=== PATIENT | male | born 1985 | race Caucasian/White ===

== ENCOUNTER 2020-02-18 01:44 | Emergency (ER) | payer OTHER, SELFPAY ==
--- NOTE | ~2020-02-18 | XR_ITS ---
EXAMINATION: XR chest 2V DATE: 02/18/2020 03:17 INDICATION: 1-2 months of shortness of breath TECHNIQUE: PA and lateral views of the chest were obtained. COMPARISON: None FINDINGS: The lungs are clear with no focal airspace opacities, pulmonary edema, pleural effusion or pneumothor ax. The cardiomediastinal silhouette is normal. Visualized bones and soft tissues are unremarkable. IMPRESSION: 1. Normal chest radiograph. Reviewed, dictated and finalized at location A. IMPRESSION: 1. Normal chest radiograph.
[2020-02-18 01:52] VITALS: BP 149/92; PULSE 81; RESP 18; TEMP 36.3; O2SAT 100
--- NOTE | 2020-02-18 02:01 | ED.CHESTPAIN ---
HPI - Chest Pain General Chief Complaint: Chest Pain Stated Complaint: fullness in chest and throat/increased blood flow Time Seen by Provider: 02/18/20 01:55 Source: patient and RN notes reviewed Mode of arrival: other Limitations: no limitations History of Present Illness HPI narrative: Pt is a 34 y/o male who presents to the ED with c/o chest fullness and throat fullness that began a few months ago, but has progressively worsened the past couple of days. Pt states that he has had a lot of anxiety built up from dysphagia for the past 2 years. Pt describes his dyphagia as if someone is sticking two fingers into his neck. Pt notes that yesterday he did a workout and he notes that the blood flow in his neck worsens the way he swallows. Pt has had acid reflux after eating. Pt denies talking to his PCP about his sx. He notes that he has only talked to his PCP about the pain in his elbow. Pt also reports palpitations, but denies vomiting. MD complaint: other (chest and throat fullness) Onset (ago): month(s) (2) Timing of current episode: still present Quality: fullness Associated symptoms: palpitations Treatment prior to arrival: none Review of Systems Review of Systems: All systems reviewed & are unremarkable except as noted in HPI and below ENT: Reports dysphagia Cardiovascular: Cardiovascular: Reports palpitations and Reports other (chest and throat fullness) Gastrointestinal: Gastrointestinal: Denies vomiting PMFSH Past Medical History Medical History (Updated 02/18/20 @ 04:22 by Jeane Perry MD) Hernia Surgical History Surgical History (Updated 02/18/20 @ 02:37 by Susan Jansen) H/O hernia repair Social History Social History (Updated 02/18/20 @ 02:36 by Susan Jansen) Smoking status: Never smoker Alcohol intake: current Substance use: current Substance use type: marijuana Exam Narrative: Exam Narrative: GENERAL: Well-appearing, well-nourished, and in no acute distress. HEAD: Normocephalic, atraumatic EYES: PERRLA and EOMI, conjunctiva clear without discharge EARS: TM's clear bilaterally without erythema or dullness NOSE: Nares clear, no rhinorrhea or epistaxis THROAT:Mucous membranes moist, Oropharynx normal without erythema, exudate, peritonsillar swelling or fluctuance NECK: Supple, without lymphadenopathy or mass RESPIRATORY: No respiratory distress, Airway patent, Respirations non-labored, Clear to auscultation without rales, rhonchi or wheeze HEART: Regular rate and rhythm. No murmur heard. Normal peripheral pulses. ABDOMEN: Soft, nontender, nondistended, normal active bowel sounds. No masses. No rebound or guarding, No organomegaly. EXTREMITIES: No edema, normal strength with full range of motion. SKIN: Warm, dry, normal color without rash NEURO: Alert and oriented x3. CN 2-12 grossly intact. No focal deficits. PSYCH: Normal mood and affect. Neck: Neck: full ROM, no lymphadenopathy, no meningeal signs and trachea midline Thyroid: thyroid normal Lymphatic: no lymphadenopathy noted Chest: Chest palpation & inspection: normal inspection of the chest Course Reevaluation(s) Reevaluation #1: I have discussed with patient that symptoms may be related to anxiety but he will need to follow up with primary care physician to rule out arrhythmia or GI cause. I discussed he should hold off on exercise until he is seen by his primary care physician. Date: 02/18/20 Time: 04:17 Vital Signs Vital signs: Vital Signs Temperature 97.4 F L 02/18/20 01:52 Pulse Rate 81 02/18/20 01:52 Respiratory Rate 18 02/18/20 01:52 Blood Pressure 149/92 H 02/18/20 01:52 Pulse Oximetry 100 02/18/20 01:52 Temperature 97.4 F L 02/18/20 01:52 Pulse Rate 72 02/18/20 03:27 Respiratory Rate 18 02/18/20 03:27 Blood Pressure 137/87 02/18/20 03:27 Pulse Oximetry 100 02/18/20 03:27 MDM - Chest Pain Lab Data Attestation: I reviewed the patient's lab results. Resu
[2020-02-18 02:13] VITALS: PULSE 74
[2020-02-18 02:27] LABS: Basophils Percent Auto 0.3 % (0.2-1.2); Eosinophils Absolute Auto 0.1 K/mm3 (0-0.3); Eosinophils Percent Auto 1.3 % (0-4.4); Hematocrit 43.5 % (42.0-52.0); Immature Granulocyte Absolute 0.04 K/mm3 (0.00-0.031); Immature Granulocyte Percent A 0.4 % (0-0.5); Lymphocytes Absolute Auto 4.61 K/mm3 (0.9-3.2); Lymphocytes Percent Auto 47.5 % (18.3-44.2); Mean Corpuscular HGB Conc 34.5 g/dl (32-36); Mean Corpuscular Hemoglobin 31.9 pg (26-34); Mean Corpuscular Volume 92.6 fl (80-100); Mean Platelet Volume 9.5 fl (7.4-10.4); Monocytes Absolute Auto 0.6 K/mm3 (0.1-0.6); Monocytes Percent Auto 6.3 % (2.6-8.5); Neutrophils Absolute Auto 4.3 K/mm3 (1.3-6.7); Neutrophils Percent Auto 44.2 % (45.5-73.1); Platelet Count Result 237 k/mm3 (150-375); Red Cell Distribution Width 11.9 % (11.5-14.5); White Blood Count 9.7 K/mm3 (4.5-10.0)
[2020-02-18 02:31] LABS: INR 0.9; Prothrombin Time 12.2 Seconds (11.1-14.7)
[2020-02-18 02:57] LABS: D Dimer < 0.22 ug/mL (<0.48)
[2020-02-18 03:21] LABS: Alanine Aminotransferase 27 U/L (4-50); Albumin Level 4.4 g/dL (3.5-5.1); Alkaline Phosphatase 52 U/L (38-126); Aspartate Amino Transferase 32 U/L (17-59); Bilirubin,Total 0.7 mg/dL (0.2-1.3); Blood Urea Nitrogen 21 mg/dL (9-20); Calcium 9.4 mg/dL (8.4-10.2); Carbon Dioxide 29 mmol/L (22-30); Chloride 104 mmol/L (98-107); Estimated CRCL calculation 88 ml/min; Estimated Glomerular Filt Rate > 60; Glucose 117 mg/dL (75-110); Potassium 3.6 mmol/L (3.4-5.0); Sodium 137 mmol/L (137-145)
[2020-02-18 03:27] VITALS: BP 137/87; PULSE 72; RESP 18; O2SAT 100
[2020-02-18 04:30] LABS: Troponin I 0.012 ng/mL (0.000-0.034)
[2020-02-18 04:40] VITALS: BP 126/78; PULSE 78; RESP 18; O2SAT 99
--- NOTE | 2020-02-18 10:39 | ECG_ITS ---
Measurements Intervals [place] Rate: 74 P: 64 WI: 175 QRS: 55 QRSD: 112 T: 59 QT: 375 QTc: 418 Interpretive Statements SINUS RHYTHM WITH SINUS ARRHYTHMIA INCOMPLETE RIGHT BUNDLE BRANCH BLOCK BORDERLINE ECG Electronically Signed On 02-18-2020 10:50:00 CDT by Boris Clancy D.O.
== END 2020-02-18 04:55 | disposition home or self-care (01) ==
PROVIDERS: Emergency Provider General Practice
DX: F45.8 Other somatoform disorders (principal); R00.2 Palpitations; I45.10 Unspecified right bundle-branch block
CPT/HCPCS: 36415; 71046; 80053; 83735; 84484; 85025; 85380; 85610; 85730; 93005; 99284

== ENCOUNTER 2020-06-29 19:53 | Emergency (ER) | payer OTHER, SELFPAY ==
[2020-06-29] VITALS (8 sets, daily range): BP systolic 126–149; BP diastolic 25–112; PULSE 66–88; RESP 15–20; TEMP 36.8; O2SAT 97–100
--- NOTE | ~2020-06-29 | XR_ITS ---
EXAMINATION: XR chest 2V 06/29/2020 20:37 INDICATION: Chest pain PROCEDURE: PA and lateral chest COMPARISON: 02/18/2020 FINDINGS: The lungs are clear. The cardiomediastinal silhouette is within normal limits. There are no pleural effusions. There is no pneumothorax suspected. IMPRESSION: 1: NO ACUTE CARDIOPULMONARY DISEASE. Reviewed, dictated and finalized at location A.
--- NOTE | ~2020-06-29 | CT_ITS ---
EXAMINATION: CTA brain carotid DATE: 06/29/2020 22:01 INDICATION: Headache and neck pain with exertion TECHNIQUE: Computed tomographic angiography (CTA) of the head was performed without and with 100 mL O mnipaque-350 intravenous contrast. CTA of the neck was performed with intravenous contrast. The dose- length product was 1757.16 mGy-cm. Maximum intensity projection and volume rendered 3D-reconstruction s were created by the technologist on a separate workstation. Automated exposure control and iterativ e reconstruction technique were employed. COMPARISON: None. FINDINGS: HEAD CTA: There is no intracranial hemorrhage, acute infarction, or abnormal mass lesion. The ventric les are normal. There is no abnormal mass effect or midline shift. The watts-white matter differentiat ion is normal. The basal cisterns are patent. The orbits are normal. The paranasal sinuses, mastoids and calvarium are normal. There is no significant stenosis of the basilar artery or posterior cerebral arteries. There is no si gnificant stenosis of the intracranial internal carotid arteries or the anterior or middle cerebral a rteries. The anterior communicating artery and posterior communicating arteries are normal. There is no aneurysm. NECK CTA: The thyroid gland is unremarkable. The submandibular and parotid glands are symmetric. Ther e is no lymphadenopathy. There are no masses identified. The airway is unremarkable. There are no oss eous abnormalities. The superior mediastinum is unremarkable. There is 0% stenosis of the proximal right internal carotid artery relative to normal distal artery l umen diameter (NASCET criteria). There is 0% stenosis of the proximal left internal carotid artery re lative to normal distal artery lumen diameter. IMPRESSION: 1. No acute intracranial abnormality. Normal head CTA. 2. 0% stenosis of the proximal right internal carotid artery relative to normal distal artery lumen d iameter (NASCET criteria). 3. 0% stenosis of the proximal left internal carotid artery relative to normal distal artery lumen di ameter. Reviewed, dictated and finalized at location A. IMPRESSION: 1. No acute intracranial abnormality. Normal head CTA. 2. 0% stenosis of the proximal right internal carotid artery relative to normal distal artery lumen diameter (NASCET criteria). 3. 0% stenosis of the proximal left internal carotid artery relative to normal distal artery lumen diameter.
--- NOTE | 2020-06-29 20:09 | PC.NURSE ---
ERP Dr. Strickland at bedside for assessment.
--- NOTE | 2020-06-29 20:13 | ECG_ITS ---
Measurements Intervals [place] Rate: 71 P: 62 RI: 173 QRS: 43 QRSD: 117 T: 53 QT: 371 QTc: 405 Interpretive Statements SINUS RHYTHM INTRAVENTRICULAR CONDUCTION DELAY BORDERLINE ECG Electronically Signed On 06-29-2020 21:34:15 CDT by Boris Clancy D.O.
--- NOTE | 2020-06-29 20:14 | ED.GENADULT ---
HPI - General Adult General Chief complaint: Unspecified Stated complaint: orthostatic headache Time Seen by Provider: 06/29/20 20:06 Source: RN notes reviewed History of Present Illness HPI narrative: Patient presents emergency department from home for multiple complaints. Patient states that approximately a year and a half ago he was performing squats when he developed a severe headache. He states that headache continued for approximately 3 weeks and worsened with any activity of any kind. He states that with that headache he had pain that radiated into his upper back and chest. States that since that time for the past year and a half he has intermittent headaches as well as a heavy feeling in his chest when he stands up with difficulty breathing and difficulty swallowing with pain localized in the right upper back. Patient states that at times the pain will radiate into his jaw and into his arm and improves with sitting down. He states that he has no fevers or chills no vision changes no numbness or tingling in extremities no abdominal pain nausea vomiting or any other symptoms. Related Data Home Medications Medication Instructions Recorded Confirmed No Home Medications 06/29/20 Allergies Allergy/AdvReac Type Severity Reaction Status Date / Time prochlorperazine AdvReac Agitated Verified 06/29/20 20:05 [From Compazine] Review of Systems Review of Systems: Narrative: Gen.: Denies fevers or chills Eyes: Denies eye pain or visual change ENT: Denies congestion Respiratory: Reports shortness of breath, denies cough CV: See HPI GI: Denies abdominal pain nausea, emesis or diarrhea denies burning, urgency, frequency or hematuria Musculo she reports intermittent headache, denies numbness or tingling Skin: Denies rash Except as documented, all other systems reviewed and negative [facility] Past Medical History Medical History Hernia Surgical History Surgical History (Updated 02/18/20 @ 02:37 by Susan Jansen) H/O hernia repair Social History Social History Smoking status: Never smoker Alcohol intake: current Substance use: current Substance use type: marijuana Gender identity (if verbalized by the patient): Male Exam Narrative: Exam Narrative: APPEARANCE: No acute distress, nontoxic, resting in bed HEENT: Normocephalic, atraumatic, OMM, TMs clear bilaterally EYES: PERRL, EOMI NECK: Supple, nontender, full range of motion without pain, no meningismus RESPIRATORY: No respiratory distress, clear to auscultation bilaterally with no rhonchi wheezing or rales CARDIOVASCULAR: RRR s murmur bilateral radial pulse 2+ ABDOMINAL: Soft, nontender, nondistended MUSCULOSKELETAL: Moves all extremities. No clubbing, cyanosis or edema. Back: No midline thoracic lumbar tenderness palpation, tender palpation right paravertebral muscles T4-6 NEURO: A and O ?3, following commands, speech normal, no facial droop,muscle strength 5 out of 5 bilateral upper and lower extremities SKIN:: Warm, dry. Normal Color PSYCHIATRIC: Normal affect/mood Course Course Emergency Course: Patient meets PERC rule criteria and no further testing needs to be performed for pulmonary embolism. Patient been chest pain-free throughout stay in ED. Discussed with Dr. montes presentation work-up. Discussed EKGs and lab results. Please patient may be discharged with follow-up as an outpatient Discussed with patient results of workup and diagnosis. Discussed need for follow-up with primary care, proper use of medication, and reasons to return to the emergency department. Patient understands and agrees to current treatment plan. Discussed with patient plan for follow-up with cardiology as well as neurology as he has been having current issues with headaches for the past year and a half Vital Signs Vital signs: Vital Signs Temperatur
[2020-06-29] MEDS: SODIUM CHLORIDE 0.9% IV 1,000 ML 999 ML IV CONT (20:20)
[2020-06-29 20:32] LABS: Basophils Percent Auto 0.5 % (0.2-1.2); Eosinophils Absolute Auto 0.1 K/mm3 (0-0.3); Eosinophils Percent Auto 1.5 % (0-4.4); Hematocrit 48.1 % (42.0-52.0); Hemoglobin 16.7 g/dL (14.0-18.0); Immature Granulocyte Absolute 0.03 K/mm3 (0.00-0.031); Immature Granulocyte Percent A 0.4 % (0-0.5); Lymphocytes Absolute Auto 4.24 K/mm3 (0.9-3.2); Lymphocytes Percent Auto 49.9 % (18.3-44.2); Mean Corpuscular HGB Conc 34.7 g/dl (32-36); Mean Corpuscular Hemoglobin 32.4 pg (26-34); Mean Corpuscular Volume 93.2 fl (80-100); Mean Platelet Volume 9.3 fl (7.4-10.4); Monocytes Absolute Auto 0.7 K/mm3 (0.1-0.6); Monocytes Percent Auto 7.7 % (2.6-8.5); Neutrophils Absolute Auto 3.4 K/mm3 (1.3-6.7); Platelet Count Result 250 k/mm3 (150-375); Red Blood Count 5.16 M/mm3 (4.6-6.20); Red Cell Distribution Width 11.8 % (11.5-14.5); White Blood Count 8.5 K/mm3 (4.5-10.0)
[2020-06-29 20:42] LABS: INR 0.9; Prothrombin Time 11.6 Seconds (11.1-14.7)
[2020-06-29 20:43] LABS: Partial Thromboplastin Time 31.9 SECONDS (22.3-36.8)
[2020-06-29 20:44] LABS: Anion Gap 11.9 mmol/L (7-16); Blood Urea Nitrogen 21 mg/dL (9-20); Calcium 9.3 mg/dL (8.4-10.2); Carbon Dioxide 30 mmol/L (22-30); Chloride 101 mmol/L (98-107); Estimated Glomerular Filt Rate > 60; Glucose 100 mg/dL (75-110); Potassium 3.9 mmol/L (3.4-5.0); Sodium 139 mmol/L (137-145)
[2020-06-29 20:55] LABS: Troponin I 0.015 ng/mL (0.000-0.034)
--- NOTE | 2020-06-29 21:03 | PC.NURSE ---
ERP at bedside to update pt on status/results
--- NOTE | 2020-06-29 22:14 | PC.NURSE ---
RN report given to Alejandrina
[2020-06-30 00:06] VITALS: BP 124/76; PULSE 75; RESP 16; O2SAT 99
== END 2020-06-30 00:08 | disposition home or self-care (01) ==
PROVIDERS: Emergency Provider Emergency Medicine; PCP Physician Assistant
DX: R51 Headache (principal); R07.9 Chest pain, unspecified; I45.9 Conduction disorder, unspecified
CPT/HCPCS: 36415; 70496; 70498; 71046; 80048; 84484; 85025; 85610; 85730; 93005; 96360; 99284; J7030; Q9967

== ENCOUNTER 2020-12-31 13:34 | Emergency (ER) | payer OTHER, SELFPAY ==
--- NOTE | ~2020-12-31 | US_ITS ---
EXAMINATION: US scrotum doppler DATE: 12/31/2020 15:25 INDICATION: Testicular pain. TECHNIQUE: Grayscale and Doppler ultrasound images of the testes were obtained. COMPARISON: None. FINDINGS: The right testis measures 3.9 x 2.8 x 2.4 cm. The left testis measures 3.8 x 2.4 x 2.2 cm. There is normal vascular flow to both testes. The right epididymis is normal with normal vascular janice w. The left epididymis is normal with normal vascular flow. There is no varicocele or hydrocele. IMPRESSION: 1. Normal testes. Reviewed, dictated and finalized at location A. EWATER RAFTING GUIDE IMPRESSION: 1. Normal testes.
--- NOTE | ~2020-12-31 | CT_ITS ---
EXAMINATION: CT abdomen pelvis wo con DATE: 12/31/2020 16:25 INDICATION: Flank pain radiating to the groin. TECHNIQUE: Computed tomography (CT) of the abdomen and pelvis was performed without intravenous contr ast. Automated exposure control and iterative reconstruction technique were employed. The dose-length product was 290.74 mGy-cm. COMPARISON: None. FINDINGS: The visualized portions of the lung bases demonstrate minimal atelectasis. No pleural effus ion. The heart size is normal. No pericardial effusion. The liver, gallbladder, spleen, pancreas, adr enal glands, and kidneys are normal. There is no urolithiasis. There are no dilated loops of bowel. T he appendix is normal. There are no pathologically enlarged lymph nodes. There is no free intraperito varghese fluid. There is moderate degenerative disc disease at L5-S1. IMPRESSION: 1. No urolithiasis. Reviewed, dictated and finalized at location A. OLOGY INSTRUCTOR IMPRESSION: 1. No urolithiasis.
[2020-12-31 13:42] VITALS: BP 155/94; PULSE 85; RESP 14; TEMP 36.6; O2SAT 99
--- NOTE | 2020-12-31 15:00 | ED.MALEGU ---
HPI - Male Genitourinary General Chief complaint: Urogenital-Male Stated complaint: testicular pain Time Seen by Provider: 12/31/20 14:29 Source: patient Mode of arrival: ambulatory Limitations: no limitations History of Present Illness HPI Narrative: This is a 35 year old male that presents to the ER for testicular pain x 2 days. Reports he and his used a penis ring and since that time he has been having pain in his testicles. Especially in the right testicle. Reports the pain radiates into his abdomen and low back. The pain is a dull ache and intermittently more sharp. Reports no concern for STDs. Reports urinary frequency. Denies fever, vomiting, dysuria or hematuria. Related Data Home Medications Medication Instructions Recorded Confirmed No Home Medications 12/31/20 12/31/20 Allergies Allergy/AdvReac Type Severity Reaction Status Date / Time prochlorperazine AdvReac Agitated Verified 12/31/20 14:00 [From Compazine] Review of Systems Review of Systems: Narrative: CONSTITUTIONAL: Denies fever GASTROINTESTINAL: Reports abdominal pain, nausea. Denies vomiting GENITOURINARY: Denies dysuria or hematuria. MUSCULOSKELETAL: Reports back pain, joint pain, and myalgia. NEUROLOGIC: Denies numbness, or weakness. All systems reviewed & are unremarkable except as noted in HPI and below PMFSH Past Medical History Medical History (Updated 12/31/20 @ 17:07 by Shanika Clemens PA-C) Hernia Surgical History Surgical History (Updated 02/18/20 @ 02:37 by Susan Jansen) H/O hernia repair Social History Social History Smoking status: Never smoker Alcohol intake: current Substance use: current Substance use type: marijuana Gender identity (if verbalized by the patient): Male Exam Narrative: Exam Narrative: GENERAL: Well-appearing, well-nourished, and in no acute distress. HEAD: Normocephalic, atraumatic. EYES: EOMI. CHEST: Clear to auscultation. No respiratory distress. No wheezes rales or rhonchi HEART: Regular rate and rhythm. No murmur heard. Normal peripheral pulses. ABDOMEN: Soft, nondistended, normal active bowel sounds. Tender to palpation lower abdomen, without guarding. No CVA tenderness EXTREMITIES: Normal range of motion. No edema. SKIN: Warm, dry, no rash. NEURO: No focal deficits. Alert and oriented x3. PSYCH: Normal mood and affect Course Vital Signs Vital signs: Vital Signs Temperature 97.9 F 12/31/20 13:42 Pulse Rate 85 12/31/20 13:42 Respiratory Rate 14 12/31/20 13:42 Blood Pressure 155/94 H 12/31/20 13:42 Pulse Oximetry 99 12/31/20 13:42 Temperature 97.9 F 12/31/20 13:42 Pulse Rate 85 12/31/20 13:42 Respiratory Rate 14 12/31/20 13:42 Blood Pressure 155/94 H 12/31/20 13:42 Pulse Oximetry 99 12/31/20 13:42 MDM - Male Genitourinary MDM Narrative Medical decision making narrative: Patient presents the emergency department for testicular pain over the last couple of days. Seem to be correlated with using a penis ring during intercourse. Reported the pain radiated to his groin and flank at times. Reported no concern for STDs, or abnormal lesions or rashes. He is afebrile and nontoxic-appearing. CBC and metabolic panel without concerning findings. UA without evidence of infection. Scrotum ultrasound is normal. CT abdomen pelvis is without evidence of ureterolithiasis. Patient was updated on case findings. Will be given urology for follow-up. He is stable and felt appropriate for further outpatient evaluation. He was given warnings to return to the ER Lab Data Attestation: I reviewed the patient's lab results. Result diagrams: 12/31/20 15:03 12/31/20 15:03 Labs: Lab Results 12/31/20 12/31/20 12/31/20 Range/Units 15:03 15:03 15:03 WBC 7.0 (4.5-10.0) K/mm3 RBC 4.68 (4.6-6.20) M/mm3 Hgb 15.0 (14.0-18.0) g/dL Hct 44.1 (42.0
[2020-12-31 15:19] LABS: Basophils Percent Auto 0.6 % (0.2-1.2); Eosinophils Absolute Auto 0.1 K/mm3 (0-0.3); Hematocrit 44.1 % (42.0-52.0); Immature Granulocyte Absolute 0.01 K/mm3 (0.00-0.031); Immature Granulocyte Percent A 0.1 % (0-0.5); Lymphocytes Absolute Auto 3.26 K/mm3 (0.9-3.2); Lymphocytes Percent Auto 46.4 % (18.3-44.2); Mean Corpuscular Hemoglobin 32.1 pg (26-34); Mean Corpuscular Volume 94.2 fl (80-100); Mean Platelet Volume 9.1 fl (7.4-10.4); Monocytes Absolute Auto 0.6 K/mm3 (0.1-0.6); Monocytes Percent Auto 8.1 % (2.6-8.5); Neutrophils Absolute Auto 3.1 K/mm3 (1.3-6.7); Neutrophils Percent Auto 43.8 % (45.5-73.1); Platelet Count Result 202 k/mm3 (150-375); Red Blood Count 4.68 M/mm3 (4.6-6.20); Red Cell Distribution Width 11.9 % (11.5-14.5)
[2020-12-31 15:20] LABS: Add Urine Microscopic? NO; Appearance Urine Clear (Clear); Bilirubin Urine Negative (Negative); Blood Urine Negative (Negative); Color Urine Straw (Yellow); Glucose Urine UA Negative (Negative); Ketones Urine Negative (Negative); Leukocyte Esterase Ur Negative LEU/UL (Negative); Nitrate Urine Negative (Negative); Protein Urine Negative (Negative); Specific Grav Ur 1.009 (1.001-1.035); Urobilinogen Urine Negative mg/dL (<2.0)
[2020-12-31 15:28] LABS: Anion Gap 7 mmol/L (8-16); Blood Urea Nitrogen 22 mg/dL (9-20); Calcium 9.3 mg/dL (8.4-10.2); Carbon Dioxide 29 mmol/L (22-30); Chloride 104 mmol/L (98-107); Estimated CRCL calculation 95 ml/min; Estimated Glomerular Filt Rate > 60; Glucose 84 mg/dL (75-110); Potassium 3.9 mmol/L (3.4-5.0); Sodium 140 mmol/L (137-145)
== END 2020-12-31 17:20 | disposition home or self-care (01) ==
PROVIDERS: Physician Assistant; Emergency Provider Emergency Medicine; PCP Physician Assistant
DX: N50.812 Left testicular pain (principal); N50.811 Right testicular pain
CPT/HCPCS: 36415; 74176; 76870; 80048; 81003; 85025; 93976; 96374; 99284; J0131

== ENCOUNTER 2021-04-22 07:15 | Outpatient (CLI) | payer OTHER, SELFPAY ==
--- NOTE | ~2021-04-22 | MR_ITS ---
EXAMINATION: MR lumbar spine wo/w con DATE: 04/22/2021 08:44 INDICATION: Neurogenic bladder. Lower back pain. TECHNIQUE: Magnetic resonance imaging (MRI) of the lumbar spine was performed without and with 14 mL MultiHance intravenous contrast. Sequences included sagittal T2-weighted FSE, sagittal T2-weighted FS FSE, and sagittal and axial T1-weighted FSE. Postcontrast sequences included axial T2-weighted FSE a nd axial and sagittal T1-weighted FS FSE. COMPARISON: None FINDINGS: There is 7 degrees dextrocurvature of lumbar spine. Vertebral body heights are normal. Ther e is severely decreased disc height at L5-S1 with endplate remodeling. The distal spinal cord signal intensity is normal. The conus medullaris is at L1. The following disc levels are specifically discus sed: L1-L2: The disc does not extend beyond the endplate margin. There is no facet joint osteoarthritis. T here is no neural foraminal stenosis. There is no central canal stenosis. L2-L3: The disc does not extend beyond the endplate margin. There is mild right facet joint osteoarth ritis. There is no neural foraminal stenosis. There is no central canal stenosis. L3-L4: The disc does not extend beyond the endplate margin. There is no facet joint osteoarthritis. T here is no neural foraminal stenosis. There is no central canal stenosis. L4-L5: There is a left central protrusion. There is no facet joint osteoarthritis. There is mild left neural foraminal stenosis. There is mild central canal stenosis. L5-S1: The disc is bulging and has an annular fissure. There is mild bilateral facet joint osteoarthr itis. There is mild right and moderate left neural foraminal stenosis. There is mild central canal st enosis. IMPRESSION: 1. Severe lower lumbar spondylosis. Reviewed, dictated and finalized at location B.
[2021-04-22 08:10] LABS: Estimated Glomerular Filt Rate > 60
== END 2021-04-22 07:16 | disposition home or self-care (01) ==
PROVIDERS: PCP Physician Assistant; Visit Provider Physician Assistant
DX: N31.9 Neuromuscular dysfunction of bladder, unspecified (principal); M47.817 Spondylosis without myelopathy or radiculopathy, lumbosacral region; M48.07 Spinal stenosis, lumbosacral region
CPT/HCPCS: 72158; A9577

== ENCOUNTER 2021-05-09 17:54 | Emergency (ER) | payer OTHER, SELFPAY ==
--- NOTE | ~2021-05-09 | CT_ITS ---
EXAMINATION: CTA brain DATE: 05/09/2021 19:43 INDICATION: Orthostatic headache TECHNIQUE: Computed tomographic angiography (CTA) of the head was performed without and with 100 mL O mnipaque-350 intravenous contrast. Volume-rendered and maximum intensity projection 3D reconstruction s of the intracranial arteries were created by the technologist on a separate workstation. Automated exposure control and iterative reconstruction technique were employed. The dose-length product was 10 92.70 mGy-cm. COMPARISON: 06/29/2020 FINDINGS: No acute intracranial hemorrhage, acute infarction or abnormal extra axial fluid collection. Ventricl es are normal and symmetric. Basal cisterns are patent. No mass/mass effect. The orbits, paranasal si nuses and mastoid air cells are normal. There is no hemodynamically significant stenosis in the vertebral, basilar and internal carotid arter ies. Vertebral arteries are codominant. No dissection or aneurysms identified. Both A1 and P1 segmen ts are patent. Cerebral arterial arborization appears symmetric. No abnormally enhancing brain lesion s. IMPRESSION: 1. Normal brain CT angiogram. Reviewed, dictated and finalized at location A.
[2021-05-09 17:59] VITALS: BP 137/92; PULSE 83; RESP 18; TEMP 36.5; O2SAT 100
--- NOTE | 2021-05-09 18:32 | PC.NURSE ---
Pt c/o headaches x3 years, denies trauma, worse yesterday after having sex last night. Also believes headaches may be from caffeine withdrawal. Pt states I need a CT to prove that I do not have a CSF leak, I read a lot of studies online that it is underdiagnosed in young males that lift weights .
--- NOTE | 2021-05-09 18:36 | ED.HA ---
HPI - Headache General Chief Complaint: Headache Stated Complaint: headaches Time Seen by Provider: 05/09/21 18:09 History of Present Illness HPI Narrative: Orthostatic headache for quite some time. Initially started 3 years ago after a back injury while lifting weights. It was worse with being upright or exerting himself. He tried taking caffeine which seemed to control it and he did not have any symptoms for a long time. Recently he has begun ahving the same symptoms again. He is concerned that he may have a spontaneous CSF leak. He has told his PCP and felt that they did not take him seriously. No weakness, numbness, confusion, fever. Related Data Home Medications Medication Instructions Recorded Confirmed No Home Medications 12/31/20 12/31/20 Allergies Allergy/AdvReac Type Severity Reaction Status Date / Time prochlorperazine AdvReac Agitated Verified 05/09/21 17:55 [From Compazine] Review of Systems Review of Systems: All systems reviewed & are unremarkable except as noted in HPI and below Constitutional: Constitutional: Denies fever(s) and Denies weakness Eyes: Eyes: Reports no additional eye complaints ENT: Denies sore throat Cardiovascular: Cardiovascular: Denies chest pain Respiratory: Respiratory: Denies dyspnea Gastrointestinal: Gastrointestinal: Denies abdominal pain and Denies nausea Musculoskeletal: Musculoskeletal: Reports back pain Neurologic: Denies confusion and Denies dizziness PMFSH Past Medical History Medical History Hernia Surgical History Surgical History H/O hernia repair Social History Social History Smoking status: Never smoker Alcohol intake: current Substance use: current Substance use type: marijuana Gender identity (if verbalized by the patient): Male Exam Const: General: healthy appearing, no acute distress and alert Orientation/consciousness: patient oriented x3 HENMT: Head: normal to inspection Eyes: Pupils: Equal, round and reactive pupils present EOM: EOMs intact bilaterally Neck: Neck: normal visual inspection and no lymphadenopathy Chest: Chest palpation & inspection: no tenderness Resp: Effort & Inspection: normal respiratory effort Auscultation: clear to auscultation bilaterally, no rales, no rhonchi and no wheezes Cardio: Jugular venous distension: no JVD Rate: regular rate Rhythm: regular rhythm Heart sounds: no murmurs GI: Inspection: non-distended GI Palp: Yes Soft to palpation and No Tenderness to palpation present (GI) Back/Spine/Pelvis: Other: nontender Skin: General skin exam: normal color Neuro: General: patient oriented x3 and moves all extremities Speech: normal speech Extrem: General: no edema Psych: Appearance: well kempt Affect: normal affect Course Vital Signs Vital signs: Vital Signs Temperature 36.5 C 05/09/21 17:59 Pulse Rate 83 05/09/21 17:59 Respiratory Rate 18 05/09/21 17:59 Blood Pressure 137/92 H 05/09/21 17:59 Pulse Oximetry 100 05/09/21 17:59 Temperature 36.5 C 05/09/21 17:59 Pulse Rate 65 05/09/21 19:56 Respiratory Rate 14 05/09/21 19:56 Blood Pressure 116/78 05/09/21 19:56 Pulse Oximetry 100 05/09/21 19:56 MDM - Headache MDM Narrative Medical decision making narrative: His story is consistent with idiopathic intracranial hypotension/CSF leak unfortunately I have no mechanism to make this diagnosis or treat the condition at my disposal at this time. I recomended ongoing follow-up with his PCP Differential Diagnosis Differential diagnosis: Likely migraine, tension headache, subarachnoid hemorrhage and other (aneurysm, CSF leak ) Medical Records Attestation: I reviewed the patient's medical records. Lab Data Attestation: I reviewed the patient's lab results. Result diagr
[2021-05-09 19:05] LABS: Basophils Percent Auto 0.6 % (0.2-1.2); Eosinophils Percent Auto 0.6 % (0-4.4); Hematocrit 47.2 % (42.0-52.0); Immature Granulocyte Absolute 0.02 K/mm3 (0.00-0.031); Immature Granulocyte Percent A 0.3 % (0-0.5); Lymphocytes Absolute Auto 2.66 K/mm3 (0.9-3.2); Lymphocytes Percent Auto 38.8 % (18.3-44.2); Mean Corpuscular HGB Conc 33.9 g/dl (32-36); Mean Corpuscular Hemoglobin 31.8 pg (26-34); Mean Corpuscular Volume 93.8 fl (80-100); Mean Platelet Volume 8.8 fl (7.4-10.4); Monocytes Absolute Auto 0.5 K/mm3 (0.1-0.6); Monocytes Percent Auto 7.7 % (2.6-8.5); Neutrophils Absolute Auto 3.6 K/mm3 (1.3-6.7); Platelet Count Result 211 k/mm3 (150-375); Red Blood Count 5.03 M/mm3 (4.6-6.20); Red Cell Distribution Width 12.2 % (11.5-14.5); White Blood Count 6.9 K/mm3 (4.5-10.0)
[2021-05-09] MEDS: SODIUM CHLORIDE 0.9% IV 1,000 ML 999 ML IV CONT (19:13)
[2021-05-09 19:16] LABS: Anion Gap 9 mmol/L (8-16); Blood Urea Nitrogen 21 mg/dL (9-20); Calcium 9.9 mg/dL (8.4-10.2); Carbon Dioxide 28 mmol/L (22-30); Chloride 104 mmol/L (98-107); Estimated CRCL calculation 95 ml/min; Estimated Glomerular Filt Rate > 60; Glucose 88 mg/dL (75-110); Magnesium 1.9 mg/dL (1.6-2.3); Sodium 141 mmol/L (137-145)
[2021-05-09 19:56] VITALS: BP 116/78; PULSE 65; RESP 14; O2SAT 100
[2021-05-09 21:48] VITALS: BP 131/91; PULSE 67; RESP 14; O2SAT 100
== END 2021-05-09 21:47 | disposition home or self-care (01) ==
PROVIDERS: Emergency Provider Emergency Medicine; PCP Physician Assistant
DX: R51.0 Headache with orthostatic component, not elsewhere classified (principal)
CPT/HCPCS: 36415; 70496; 80048; 83735; 85025; 96360; 99284; J7030; Q9967

== ENCOUNTER 2021-05-18 19:54 | Emergency (ER) | payer OTHER, SELFPAY ==
[2021-05-18 20:02] VITALS: BP 144/92; PULSE 86; RESP 16; TEMP 36.6; O2SAT 99
[2021-05-18 22:11] VITALS: BP 138/86; PULSE 70; RESP 18; O2SAT 100
[2021-05-18] MEDS: SODIUM CHLORIDE 0.9% IV 1,000 ML 999 ML IV CONT (23:00)
--- NOTE | 2021-05-18 23:08 | ED.GENADULT ---
HPI - General Adult General Chief complaint: Headache Stated complaint: unrelenting headache Time Seen by Provider: 05/18/21 21:48 Source: patient History of Present Illness HPI narrative: Patient is a 35 y/o male complaining of waxing and waning headache for about 10 days. He describes his headache as sharp and intense at times. His headache seems be worse with exertion and after intercourse. He rates his pain currently at 1/10, although it was 7/10 earlier. He has no vomiting, no focal weakness or numbness. He state that his headache is on right side radiating to his right jaw and neck. Patient states that he is concerned about possible dissection. Related Data Home Medications Medication Instructions Recorded Confirmed No Home Medications 12/31/20 12/31/20 Allergies Allergy/AdvReac Type Severity Reaction Status Date / Time prochlorperazine AdvReac Agitated Verified 05/09/21 17:55 [From Compazine] Review of Systems Constitutional: Constitutional: Denies chills, Denies fever(s), Reports headache(s) and Denies weakness Eyes: Eyes: Denies blurry vision ENT: Denies headache(s) and Reports neck pain Cardiovascular: Cardiovascular: Denies chest pain and Denies dyspnea Respiratory: Respiratory: Denies cough and Denies dyspnea Gastrointestinal: Gastrointestinal: Denies abdominal pain, Denies diarrhea, Denies nausea and Denies vomiting Genitourinary: Genitourinary: Denies hematuria and Denies dysuria Musculoskeletal: Musculoskeletal: Denies back pain and Reports neck pain Neurologic: Reports headache(s) and Denies weakness PMFSH Past Medical History Medical History Hernia Surgical History Surgical History H/O hernia repair Social History Social History Smoking status: Never smoker Alcohol intake: current Substance use: current Substance use type: marijuana Gender identity (if verbalized by the patient): Male Exam Const: General: no acute distress and well developed Orientation/consciousness: oriented to person, oriented to place, oriented to time and patient oriented x3 HENMT: Head: normocephalic Ears: external ears normal General nose exam: Normal external nose present Eyes: General: appearance normal, both eyes and all related structures Conjunctivae: conjunctivae normal Neck: Neck: normal visual inspection and full ROM Chest: Chest palpation & inspection: normal inspection of the chest and no tenderness Resp: Effort & Inspection: normal respiratory effort Auscultation: clear to auscultation bilaterally Cardio: Rate: regular rate Rhythm: regular rhythm GI: GI Palp: No abdominal tenderness and Yes Soft to palpation Skin: General skin exam: normal color and turgor normal Neuro: General: oriented to person, oriented to place, oriented to time and patient oriented x3 Cranial nerves: Yes CN's II-XII intact bilaterally Cognition (Neuro): normal cognition Speech: normal speech Motor exam (neuro): 5/5 motor strength present throughout Sensory Exam: normal sensation Coordination: [id number] test normal and [id number] test normal Extrem: General: normal to inspection, full ROM and no pedal edema Psych: Appearance: grossly normal Mental Status: mental status grossly normal Affect: normal affect Course Reevaluation(s) Reevaluation #1: Patient states that he feels better and does not want pain medication or CT. I informed patient although dissection is uncommon, it cannot be ruled out without imaging and it can lead to stroke if undiagnosed and untreated. He states that he wants to contact his PCP tomorrow for outpatient testing. I instructed patient to return if his symptoms worsen. Date: 05/18/21 Time: 23:30 Vital Signs Vital signs: Vital Signs Temperature 36.6 C 05/18/21 20:02 Pulse Rate 86 05/18/21 20:02
[2021-05-18 23:29] VITALS: BP 132/77; PULSE 68; RESP 16; O2SAT 99
== END 2021-05-18 23:50 | disposition home or self-care (01) ==
PROVIDERS: Emergency Provider Emergency Medicine; PCP Physician Assistant
DX: R51.9 Headache, unspecified (principal)
CPT/HCPCS: 96360; 99283; J7030